=== PATIENT | female | born 1980 | race Caucasian/White ===

== ENCOUNTER → 2018-04-27 | Outpatient (CLI) | payer OTHER ==
[~2018-04-27] MED LIST: PROHANCE 279.3MG/ML 15ML VIAL (A9576) As Ordered ONE
--- NOTE | 2018-04-27 14:55 | REP ---
MRI RIGHT KNEE WITH AND WITHOUT CONTRAST: TECHNIQUE: Axial proton density fat saturation, sagittal proton density T2 STIR, water excitation, coronal proton density, proton density fat saturation. Axial T1 fat sat, post IV gadolinium axial and coronal T1 fat sat with the intravenous administration of 15 mL ProHance. The menisci show no evidence of a tear. The cruciate and collateral ligaments are intact. The extensor mechanism is intact. There is moderate chondromalacia along the lateral patellar facet with some minimal subchondral marrow edema. The opposing anterior aspect of the lateral femoral condyle demonstrates a chondral defect down to the bone, which has a diameter of about 7 mm. Otherwise, there is mild global chondromalacia of the femoral condyles and tibial plateaus as well as the medial patellar facet. There is no bone marrow edema or occult fracture. A central bone lesion is seen in the distal femur. It has microlobulated borders. It measures 2.0 x 1.4 x 1.1 cm. It is hypointense on T1 and hyperintense on T2. There is rim enhancement with a more globular area of enhancement in the inferior aspect. The location and appearance is most consistent with an enchondroma. There is a small joint effusion. There is mild complex fluid in the medial popliteal fossa between the semimembranous and medial head of gastrocnemius muscle. The fluid is mildly septated. It extends for a length between 6 cm and 7 cm with a maximum thickness of 1.1 cm. Suprapatellar plica is noted. IMPRESSION: No evidence of meniscal tear. Cruciate and collateral ligaments intact. 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 There is a 7 mm chondral defect onto the bone in the opposing anterior lateral femoral condyle. Otherwise, there is mild global chondromalacia. Bone lesion in the distal femur centrally is most consistent with an enchondroma, as discussed above. There is a mild joint effusion. There is mild complex fluid in the medial popliteal fossa between the semimembranosus and medial head of the gastrocnemius. Electronically Signed by James Zhang MD 04/27/2018 04:13 P
== END ==
LOC: M RAD 12:31
PROVIDERS: ATTEND Student in an Organized Health Care Education/Training Program
DX: M25.561 Pain in right knee (principal); M22.41 Chondromalacia patellae, right knee; M25.461 Effusion, right knee; D16.21 Benign neoplasm of long bones of right lower limb
CPT/HCPCS: 73723; A9576

== ENCOUNTER → 2018-05-22 | Outpatient (REF) | payer OTHER ==
[2018-05-22 12:55] LABS: C REACTIVE PROTEIN QUANTITATIV < 0.30 MG/DL (0.00-0.30); RHEUMATOID FACTOR QUANT < 10.0 IU/ML (<15.0); URIC ACID 3.2 MG/DL (2.6-6.0)
[2018-05-29 00:09] LABS: ANTINUCLEAR ANTIBODIES DIRECT Negative (Negative); HLA-B27 Negative (.)
== END ==
LOC: M LABDRAW1 11:31
PROVIDERS: ATTEND Physical Medicine & Rehabilitation
DX: M47.816 Spondylosis without myelopathy or radiculopathy, lumbar region (principal)

== ENCOUNTER 2019-01-31 10:29 | Day surgery (SDC) | payer OTHER ==
[~2019-01-31] VITALS: Ht 170.2 cm; Wt 70.8 kg
[~2019-01-31 10:29] MED LIST changes: +KETOROLAC 60 MG/2 ML VIAL (J1885) As Ordered ONE; +LIDOCAINE 1% MDV 20ML VIAL SQ PRN; +LIDOCAINE 2% INJ 100 MG/5 ML SDV (FOR ANES.) As Ordered ONE; +LR 1,000 ML IV ONE; +MIDAZOLAM INJ 2 MG/2 ML VIAL (J2250) As Ordered ONE; +ONDANSETRON 4MG/2ML VIAL (J2405) As Ordered ONE; -PROHANCE 279.3MG/ML 15ML VIAL (A9576) As Ordered ONE; +PROPOFOL 200 MG/20 ML VIAL As Ordered ONE; +TRINTAB11 PO; +dexameTHASONE 4 MG/ML 1ML VIAL (J1100) As Ordered ONE; +fentaNYL 100 MCG/2 ML INJECTION (J3010) As Ordered ONE
[2019-01-31] MEDS ORDERED: METOCLOPRAMIDE INJ 10MG/2ML VIAL (J2765) IV PRN (14:30)
[2019-01-31] MEDS ORDERED: fentaNYL 100 MCG/2 ML INJECTION (J3010) IV PRN (14:30)
[2019-01-31] MEDS ORDERED: NORCO, ANEXSIA 5/325MG TABLET (HYDROcodone/ACETAMINOPHEN) PO PRN (14:30)
[2019-01-31] MEDS ORDERED: ONDANSETRON 4MG/2ML VIAL (J2405) IV PRN (14:30)
[2019-01-31] MEDS ORDERED: LR 1,000 ML IV SCH ×2 (14:30)
[2019-01-31] MEDS ORDERED: oxyCODONE 5MG TAB PO PRN (14:30)
[2019-01-31 16:15] VITALS: BP 109/69
--- NOTE | 2019-02-02 14:15 | RO ---
DATE OF PROCEDURE: 01/31/2019 PREPROCEDURE DIAGNOSIS: Painful scar and dyspareunia. POSTPROCEDURE DIAGNOSIS: Painful scar and dyspareunia. PROCEDURE: Left labioplasty with removal of scar and correction of labial defect. SURGEON: Dr. Rina Hester. INVESTOR: ANESTHESIA: Laryngeal mask anesthesia (LMA). DESCRIPTION OF PROCEDURE: Karlene was brought to the operating room where sufficient LMA anesthesia was induced and she was prepped, draped and positioned in the usual sterile fashion and the bladder was emptied. We then examined her labial scar. There was a gap in the left labia where they had detached very far anteriorly, really adjacent to the clitoral murry. There was a U-shaped defect. Then the remaining labia had, of course, elongated and become very troublesome for the patient , who had to kind of hold them aside and over that U-shaped spot in order to have intercourse because there was too much sensitivity at the UC spot plus the attachment seemed to have made some aspects of intercourse less pleasant for her sensory-mari as well so not just pain. All this had been discussed with the patient previously. We removed the U-shaped tissue scar and then re-evaluated the tissues. She is aware that it would be my preference not to over-correct and certainly not to just remove that labral tissue, especially since the bottom part of the U is what was tender and painful for her. So we went ahead and removed that and then did deep stitches to draw that posterior aspect up together so that the skin would not be under any tension. We used #4-0 Vicryl for this and we had plenty of tissue within the labia to work with. When we did that, ew found that not surprisingly, even though some of the length of that pendant tissue was lost by transferring it anteriorly, it was still taller than the other tissue remaining. So we reapproximated sort of in a J with that deep re-approximation on the medial aspect doing a subcu and interrupted stitch #4-0 Vicryl reapproximation and then externally doing some interrupted and running #4-0 Vicryl reapproximation and that tissue had a little bit of a J to it after the correction because of the curve taken by the tissue as it was brought back forward. But again the skin sat together without tension and then we resected again at the apex to bring that tissue down to the same level so there would be a smooth transition from the anterior to the posterior aspect of this so as to minimize the likelihood of recurrence of this problem. The patient is aware that she is going to have to avoid friction, etc., until this has healed. We did not have tissue that I felt we could glue. We did consider that but she is pre-menopausal and I did not feel that Dermabond or other dressings such as that would improve healing. So we did very, very carefully clean her off without disrupting the stitches. We used #4-0 to close all the skin wounds and then having cleaned her off, the procedure was ended. ESTIMATED BLOOD LOSS: About 10 mL. FLUID REPLACEMENT: Crystalloid. COMPLICATIONS: None. CONDITION AND DISPOSITION: Karlene tolerated the procedure well and was recovering in the recovery room in good condition.
== END 2019-01-31 16:15 | disposition home or self-care (01) ==
LOC: M SDC 10:29
PROVIDERS: ATTEND Obstetrics & Gynecology
DX: L90.5 Scar conditions and fibrosis of skin (principal); N94.10 Unspecified dyspareunia
CPT/HCPCS: 56620; 81025; 88302; J1100; J1885; J2250; J2405; J3010